=== PATIENT | female | born 1995 | race American Indian/Alaskan Native ===

== ENCOUNTER 2018-09-09 10:23 | Emergency (ER) | payer SELFPAY ==
[2018-09-09] MEDS ORDERED: ROBITUSSIN PO ONE (11:56)
[2018-09-09] MEDS ORDERED: IBUPROFEN PO ONE (11:56)
[2018-09-09] MEDS ORDERED: CATAPRES PO ONE (11:56)
--- NOTE | 2018-09-09 11:57 | Emergency Department Report ---
Minor Respiratory - HPI Chief Complaint: Upper Respiratory Infection Stated Complaint: BODY ACHE/CHEST PAIN Time Seen by Provider: 09/09/18 11:42 Duration: 2 Days Pain Location: Throat Severity: mild Minor Respiratory: Yes Rhinorrhea, Yes Able to Tolerate Fluids, Yes Cough, Yes Fever, No Sore Throat, No Ear Pain, No Sick Contacts, No Hemoptysis, No Chest Pain, No Shortness of Breath Other History: Patient is a 22-year-old female with no known problem" history of present see the complaining of runny nose, body aches generalized, stays in the dry cough. She also reports a headache since most of it is her elevated blood pressure. Patient states she is elevated blood pressure in the past but has just never have it managed. She denies any trauma today and her recent injuries. ED Review of Systems ROS: Stated complaint: BODY ACHE/CHEST PAIN Other details as noted in HPI Comment: All other systems reviewed and negative ED Past Medical Hx - Past Medical History Previous Medical History?: No - Surgical History Past Surgical History?: No - Social History Smoking Status: Never Smoker Substance Use Type: None - Medications Home Medications: Home Medications Medication Instructions Recorded Confirmed Last Taken Type Ibuprofen [Motrin] 800 mg PO Q8HR #30 tablet 09/09/18 Unknown Rx amLODIPine [Norvasc] 5 mg PO DAILY #30 tab 09/09/18 Unknown Rx Minor Respiratory Exam - Exam General: Vital signs noted. No distress. Alert and acting appropriately. HEENT: Yes Moist Mucous Membranes, No Pharyngeal Erythema, No Pharyngeal Exudates, No Rhinorrhea, No Conjuctival Injection, No Frontal Tenderness, No Maxillary Tenderness Ear: Neither TM Bulge, Neither TM Erythema, Neither EAC Pain, Neither EAC Discharge Neck: Yes Supple, No Adenopathy Lungs: Yes Good Air Exchange, No Wheezes, No Ronchi, No Stridor, No Cough, No Labored Respirations, No Retractions, No Use of Accessory Muscles, No Other Abnormal Lung Sounds Heart: Yes Regular, No Murmur Abdomen: Yes Normal Bowel Sounds, No Tenderness, No Peritoneal Signs Skin: No Rash, No Edema Neurologic: Alert and oriented, no deficits. Musculoskeletal: Unremarkable. ED Course Vital Signs 09/09/18 10:43 Temperature 100.1 F H Pulse Rate 92 H Respiratory 18 Rate Blood Pressure 169/111 O2 Sat by Pulse 100 Oximetry ED Medical Decision Making - Radiology Data Radiology results: report reviewed, image reviewed OUTINE CHEST, TWO VIEWS: HISTORY: Cough. The trachea, heart, mediastinal contour, lung mcmillan and bony thorax are unremarkable. IMPRESSION: Unremarkable chest x-ray. Transcribed By: TTR Dictated By: JUAN LUIS HOANG JR, MD Electronically Authenticated By: JUAN LUIS HOANG JR, MD Signed Date/Time: 09/09/18 1246 - Medical Decision Making 22-year-old female presents with flulike symptoms. Fever resolved no fever during the ED stay. Discussed with patient symptomatic relief with [id number] medications. Discussed continue Tylenol and Motrin as needed for fever and pain. Discussed increase fluids and diet intake. Discussed rest much needed. Discussed daily vitamin C for immune booster. Discussed follow-up with testing manager in 3-5 days. Patient verbally states she understands and will comply the following instructions and follow-up Vital signs stable. Patient is in no acute distress Critical care attestation.: If time is entered above; I have spent that time in minutes in the direct care of this critically ill patient, excluding procedure time. ED Disposition Clinical Impression: Upper respiratory infection Disposition: [id number] TO HOME OR SELFCARE Is pt being admited?: No Does the pt Need Aspirin: No Condition: Stable Instructions: Upper Respiratory Infection (ED), Viral Syndrome (ED) Additional Instructions: Make sure to follow up with the primary care physician as discussed. Take all your medications as you've been prescribed. If you have any worsening symptoms or develop new symptoms please return to ED immediately. Prescriptions: amLODIPine [Norvasc] 5 mg PO DAILY #30 tab Ibuprofen [Motrin] 800 mg PO Q8HR #30 tablet Referrals: TONNY COTTO MD [Primary Care Provider] - 3-5 Days Forms: Accompanied Note, Work/School Release Form(ED) Time of Disposition: 13:16
[2018-09-09 12:12] VITALS: BP 163/97
[2018-09-09] MEDS ORDERED: NORVASC PO ONE (12:13)
--- NOTE | 2018-09-09 13:03 | XRay Report ---
ROUTINE CHEST, TWO VIEWS: HISTORY: Cough. The trachea, heart, mediastinal contour, lung mcmillan and bony thorax are unremarkable. IMPRESSION: Unremarkable chest x-ray.
== END 2018-09-09 13:28 | disposition home or self-care (01) ==
LOC: ED 10:23
DX: J06.9 Acute upper respiratory infection, unspecified (principal); R03.0 Elevated blood-pressure reading, without diagnosis of hypertension
CPT/HCPCS: 71046; 99283